=== PATIENT | female | born 1980 | race Caucasian/White ===

== ENCOUNTER 2021-06-13 23:20 | Inpatient (IN) | payer MEDICAID, OTHER ==
[~2021-06-13] VITALS: Ht 160 cm; Wt 54.0 kg
[2021-06-14 01:06] LABS: HEMATOCRIT 40.3 % (36.0-47.0); HEMOGLOBIN 13.4 g/dl (12.0-15.5); MEAN CORPUSCULAR HEMOGLOBIN 28.2 pg (27.0-33.0); MEAN CORPUSCULAR HGB CONC 33.3 g/dl (32.0-36.5); MEAN CORPUSCULAR VOLUME 84.8 fl (80.0-96.0); PLATELET COUNT, AUTOMATED 261 10^3/uL (150-450); RED BLOOD COUNT 4.75 10^6/uL (4.00-5.40); WHITE BLOOD COUNT 8.1 10^3/uL (4.0-10.0)
[2021-06-14 01:27] LABS: HCG, SERUM QUALITATIVE NEGATIVE (NEGATIVE)
[2021-06-14 01:41] LABS: ACETAMINOPHEN LEVEL < 2.0 UG/ML (10.0-30.0); ALBUMIN 4.2 GM/DL (3.2-5.2); ALT/SGPT 25 U/L (12-78); AMPHETAMINES LEVEL URINE NEGATIVE (NEGATIVE); BARBITURATES URINE NEGATIVE (NEGATIVE); BENZODIAZEPINES URINE NEGATIVE (NEGATIVE); BILIRUBIN,DIRECT 0.3 MG/DL (0.0-0.2); BILIRUBIN,TOTAL 0.8 MG/DL (0.2-1.0); BLOOD UREA NITROGEN 11 MG/DL (7-18); CALCIUM LEVEL 9.1 MG/DL (8.5-10.1); CANNABINOIDS URINE POSITIVE (NEGATIVE); CARBON DIOXIDE LEVEL 26 MEQ/L (21-32); CHLORIDE LEVEL 104 MEQ/L (98-107); COCAINE METABOLITE URINE NEGATIVE (NEGATIVE); ETHYL ALCOHOL (ETHANOL) < 0.003 % (0.000-0.010); GLOMERULAR FILTRATION RATE > 60.0 (>60); GLUCOSE, FASTING 107 MG/DL (70-100); METHADONE URINE NEGATIVE (NEGATIVE); OPIATES URINE NEGATIVE (NEGATIVE); PHENCYCLIDINE URINE NEGATIVE (NEGATIVE); POTASSIUM SERUM 3.5 MEQ/L (3.5-5.1); RSV AMPLIFICATION NEGATIVE (NEGATIVE); SALICYLATE LEVEL < 1.7 MG/DL (5.0-30.0); SODIUM LEVEL 139 MEQ/L (136-145); TOTAL PROTEIN 7.6 GM/DL (6.4-8.2)
[2021-06-14] MEDS ORDERED: MUCI600T31 PO (11:30)
[2021-06-14] MEDS ORDERED: ZINC1TAB2 PO (11:30)
[2021-06-14] MEDS ORDERED: HOME MED LIST COMPLETE! XX SCH (11:30)
[2021-06-14] MEDS ORDERED: guaiFENesin ER 600 MG TAB PO PRN (14:55)
[2021-06-14] MEDS ORDERED: traZODone 50 MG TAB PO PRN (14:55)
[2021-06-14] MEDS ORDERED: MAALOX 30 ML SUSP *UDC PO PRN (14:55)
[2021-06-14] MEDS ORDERED: ACETAMINOPHEN TAB 650MG DOSE (2X325MG) PO PRN (14:55)
[2021-06-14] MEDS ORDERED: OLANZapine ORAL DISINTEGRATING TAB 5MG PO PRN (14:55)
[2021-06-14] MEDS ORDERED: MOM 30ML SUSPENSION UDC PO PRN (14:55)
[2021-06-15 05:56] VITALS: BP 142/86
[2021-06-15 16:22] VITALS: BP 148/73
[2021-06-16 06:50] VITALS: BP 139/76
[2021-06-16 17:43] VITALS: BP 128/63
[2021-06-17 07:01] VITALS: BP 140/78
[2021-06-17] MEDS: risperiDONE 1 MG TAB PO SCH ×2 (09:00→21:41)
[2021-06-18 06:44] VITALS: BP 165/74
[2021-06-18] MEDS: risperiDONE 1 MG TAB PO SCH (09:40)
[2021-06-18] MEDS ORDERED: BENZTROPINE 1 MG TAB PO SCH (10:30)
[2021-06-18] MEDS ORDERED: BENZ-52 PO (10:35)
[2021-06-18] MEDS ORDERED: RISP-8 PO (10:35)
[2021-06-19] MEDS ORDERED: BENZ-52 PO (06:37)
[2021-06-19] MEDS ORDERED: RISP-8 PO (06:37)
[2021-06-19] MEDS ORDERED: ZINC1TAB2 PO (06:37)
== END 2021-06-18 13:30 | disposition home or self-care (01) | DRG 776 ==
LOC: M ED 23:20 → M ED INP 06-14 14:54 → M PSY 06-14 18:06
PROVIDERS: ADMIT Student in an Organized Health Care Education/Training Program; ATTEND Student in an Organized Health Care Education/Training Program
DX: F12.151 Cannabis abuse with psychotic disorder with hallucinations (principal); F31.64 Bipolar disorder, current episode mixed, severe, with psychotic features; F28 Other psychotic disorder not due to a substance or known physiological condition

== ENCOUNTER 2021-06-18 22:50 | Inpatient (IN) | payer MEDICAID, OTHER ==
[~2021-06-18 22:50] MED LIST: BENZ-52 PO; MUCI600T31 PO; RISP-8 PO; ZINC1TAB2 PO
[2021-06-19 04:14] LABS: HEMOGLOBIN 13.2 g/dl (12.0-15.5); MEAN CORPUSCULAR HGB CONC 33.8 g/dl (32.0-36.5); MEAN CORPUSCULAR VOLUME 85.7 fl (80.0-96.0); PLATELET COUNT, AUTOMATED 243 10^3/uL (150-450); RED BLOOD COUNT 4.55 10^6/uL (4.00-5.40); WHITE BLOOD COUNT 7.2 10^3/uL (4.0-10.0)
[2021-06-19 04:46] LABS: AMPHETAMINES LEVEL URINE NEGATIVE (NEGATIVE); BARBITURATES URINE NEGATIVE (NEGATIVE); BENZODIAZEPINES URINE NEGATIVE (NEGATIVE); CANNABINOIDS URINE POSITIVE (NEGATIVE); COCAINE METABOLITE URINE NEGATIVE (NEGATIVE); METHADONE URINE NEGATIVE (NEGATIVE); OPIATES URINE NEGATIVE (NEGATIVE); PHENCYCLIDINE URINE NEGATIVE (NEGATIVE)
[2021-06-19 04:56] LABS: ACETAMINOPHEN LEVEL < 2.0 UG/ML (10.0-30.0); ALBUMIN 3.9 GM/DL (3.2-5.2); ALT/SGPT 23 U/L (12-78); BILIRUBIN,DIRECT 0.1 MG/DL (0.0-0.2); BILIRUBIN,TOTAL 0.4 MG/DL (0.2-1.0); BLOOD UREA NITROGEN 12 MG/DL (7-18); CARBON DIOXIDE LEVEL 30 MEQ/L (21-32); CHLORIDE LEVEL 104 MEQ/L (98-107); CREATININE FOR GFR 0.86 MG/DL (0.55-1.30); ETHYL ALCOHOL (ETHANOL) < 0.003 % (0.000-0.010); GLOMERULAR FILTRATION RATE > 60.0 (>60); GLUCOSE, FASTING 87 MG/DL (70-100); POTASSIUM SERUM 3.5 MEQ/L (3.5-5.1); SALICYLATE LEVEL < 1.7 MG/DL (5.0-30.0); SODIUM LEVEL 139 MEQ/L (136-145); TOTAL PROTEIN 7.2 GM/DL (6.4-8.2)
[2021-06-19] MEDS ORDERED: RISP-8 PO (06:37)
[2021-06-19] MEDS ORDERED: ZINC1TAB2 PO (06:37)
[2021-06-19] MEDS ORDERED: BENZ-52 PO (06:37)
[2021-06-19] MEDS ORDERED: HOME MED LIST COMPLETE! XX SCH (06:40)
[2021-06-19] MEDS ORDERED: traZODone 50 MG TAB PO PRN (08:20)
[2021-06-19] MEDS ORDERED: MOM 30ML SUSPENSION UDC PO PRN (08:20)
[2021-06-19] MEDS ORDERED: MAALOX 30 ML SUSP *UDC PO PRN (08:20)
[2021-06-19] MEDS ORDERED: BENZTROPINE 1 MG TAB PO PRN (08:30)
[2021-06-19 08:35] LABS: HCG, SERUM QUALITATIVE NEGATIVE (NEGATIVE)
[2021-06-19] MEDS: risperiDONE 1 MG TAB PO SCH ×2 (09:00→21:44)
[2021-06-19] MEDS: ZINC SULFATE 220 MG CAP PO SCH (10:43)
[2021-06-19 16:59] VITALS: BP 125/59
[2021-06-20 06:05] VITALS: BP 169/93
[2021-06-20] MEDS ORDERED: risperiDONE 1 MG TAB PO SCH (09:00)
[2021-06-20] MEDS: ZINC SULFATE 220 MG CAP PO SCH (09:29)
[2021-06-20] MEDS ORDERED: BENZTROPINE 0.5 MG TAB PO PRN (10:00)
[2021-06-20] MEDS: risperiDONE 1 MG TAB PO SCH ×2 (10:12→20:36)
[2021-06-20] MEDS: ASPIRIN 81MG ENTERIC TABLET PO SCH (14:28)
[2021-06-20 15:21] LABS: CHOLESTEROL RISK RATIO 1.955 (<5)
[2021-06-20 16:15] VITALS: BP 133/80
[2021-06-20] MEDS: DIVALPROEX 250MG *ER* TAB PO SCH (20:36)
[2021-06-21 06:52] VITALS: BP_SYST 110; BP_SYST 135; BP_DIAS 52; BP_DIAS 78
[2021-06-21] MEDS: ASPIRIN 81MG ENTERIC TABLET PO SCH (08:18)
[2021-06-21] MEDS: risperiDONE 1 MG TAB PO SCH ×2 (08:18→21:57)
[2021-06-21] MEDS: ZINC SULFATE 220 MG CAP PO SCH (08:18)
[2021-06-21 18:57] VITALS: BP 145/66
[2021-06-21] MEDS: DIVALPROEX 250MG *ER* TAB PO SCH (21:57)
[2021-06-21] MEDS: ACETAMINOPHEN TAB 650MG DOSE (2X325MG) PO PRN (22:17)
[2021-06-22 06:32] VITALS: BP 147/87
[2021-06-22] MEDS: ZINC SULFATE 220 MG CAP PO SCH (09:00)
[2021-06-22] MEDS: risperiDONE 1 MG TAB PO SCH ×2 (09:00→21:57)
[2021-06-22 16:12] VITALS: BP 134/62
[2021-06-22] MEDS: DIVALPROEX 250MG *ER* TAB PO SCH (21:57)
[2021-06-23] MEDS: IBUPROFEN 400MG TAB PO PRN (06:08)
[2021-06-23 06:54] VITALS: BP 140/66
[2021-06-23] MEDS: risperiDONE 1 MG TAB PO SCH ×2 (08:42→21:00)
[2021-06-23] MEDS: ZINC SULFATE 220 MG CAP PO SCH (08:43)
[2021-06-23 16:23] VITALS: BP 123/58
[2021-06-23] MEDS: ACETAMINOPHEN TAB 650MG DOSE (2X325MG) PO PRN ×2 (16:30→22:55)
[2021-06-23] MEDS: DIVALPROEX 250MG *ER* TAB PO SCH (21:00)
[2021-06-24 06:30] VITALS: BP 144/82
[2021-06-24] MEDS: ZINC SULFATE 220 MG CAP PO SCH (10:59)
[2021-06-24] MEDS: risperiDONE 1 MG TAB PO SCH ×2 (10:59→20:38)
[2021-06-24 16:22] VITALS: BP 130/87
[2021-06-24] MEDS: DIVALPROEX 250MG *ER* TAB PO SCH (20:38)
[2021-06-24] MEDS: ACETAMINOPHEN TAB 650MG DOSE (2X325MG) PO PRN (20:38)
[2021-06-25 06:42] VITALS: BP 129/84
[2021-06-25] MEDS: risperiDONE 1 MG TAB PO SCH (09:00)
[2021-06-25] MEDS: ZINC SULFATE 220 MG CAP PO SCH (09:46)
[2021-06-25] MEDS: risperiDONE 2 MG TAB PO SCH (21:07)
[2021-06-25] MEDS: DIVALPROEX 250MG *ER* TAB PO SCH (21:08)
[2021-06-25 21:51] VITALS: BP 147/90
[2021-06-26 06:30] VITALS: BP 130/81
[2021-06-26] MEDS: ZINC SULFATE 220 MG CAP PO SCH (09:52)
[2021-06-26 19:05] VITALS: BP 130/60
[2021-06-26] MEDS: risperiDONE 2 MG TAB PO SCH (22:02)
[2021-06-26] MEDS: DIVALPROEX 250MG *ER* TAB PO SCH (22:03)
[2021-06-26] MEDS: ACETAMINOPHEN TAB 650MG DOSE (2X325MG) PO PRN (22:05)
[2021-06-27 06:25] VITALS: BP 138/67
[2021-06-27] MEDS: ZINC SULFATE 220 MG CAP PO SCH (09:54)
[2021-06-27 17:37] VITALS: BP 136/61
[2021-06-27] MEDS: DIVALPROEX 250MG *ER* TAB PO SCH (21:25)
[2021-06-27] MEDS: IBUPROFEN 400MG TAB PO PRN (21:25)
[2021-06-27] MEDS: risperiDONE 2 MG TAB PO SCH (21:25)
[2021-06-28] MEDS ORDERED: risperiDONE LONG-ACTING 37.5 MG/2 ML INJ (J2794 PER 0.5MG) IM SCH (06:00)
[2021-06-28 06:38] VITALS: BP 124/57
[2021-06-28] MEDS: ZINC SULFATE 220 MG CAP PO SCH (09:14)
[2021-06-28 18:28] VITALS: BP 130/55
[2021-06-28] MEDS: risperiDONE 2 MG TAB PO SCH (21:37)
[2021-06-28] MEDS: DIVALPROEX 250MG *ER* TAB PO SCH (21:37)
[2021-06-28] MEDS: IBUPROFEN 400MG TAB PO PRN (21:38)
[2021-06-29 06:24] VITALS: BP 126/56
[2021-06-29] MEDS: ZINC SULFATE 220 MG CAP PO SCH (08:14)
[2021-06-29 18:00] VITALS: BP 131/60
[2021-06-29] MEDS: risperiDONE 2 MG TAB PO SCH (20:52)
[2021-06-29] MEDS: DIVALPROEX 250MG *ER* TAB PO SCH (20:53)
[2021-06-29] MEDS: IBUPROFEN 400MG TAB PO PRN (20:55)
[2021-06-30 06:53] VITALS: BP 117/60
[2021-06-30] MEDS: ZINC SULFATE 220 MG CAP PO SCH (08:09)
[2021-06-30] MEDS: ACETAMINOPHEN TAB 650MG DOSE (2X325MG) PO PRN (13:42)
[2021-06-30] MEDS: risperiDONE 2 MG TAB PO SCH (20:55)
[2021-06-30] MEDS: DIVALPROEX 250MG *ER* TAB PO SCH (20:55)
[2021-07-01 06:20] VITALS: BP 118/58
[2021-07-01] MEDS: guaiFENesin ER 600 MG TAB PO PRN (10:02)
[2021-07-01] MEDS: ZINC SULFATE 220 MG CAP PO SCH (10:02)
[2021-07-01 18:06] VITALS: BP 119/54
[2021-07-01] MEDS: DIVALPROEX 250MG *ER* TAB PO SCH (21:14)
[2021-07-01] MEDS: risperiDONE 2 MG TAB PO SCH (21:14)
[2021-07-02 06:12] VITALS: BP 134/70
[2021-07-02] MEDS: ZINC SULFATE 220 MG CAP PO SCH (09:28)
[2021-07-02] MEDS: guaiFENesin ER 600 MG TAB PO PRN (09:28)
[2021-07-02 16:07] VITALS: BP 125/61
[2021-07-02] MEDS: risperiDONE 2 MG TAB PO SCH ×2 (21:45→22:34)
[2021-07-02] MEDS: DIVALPROEX 250MG *ER* TAB PO SCH ×2 (21:45→22:34)
[2021-07-03 06:20] VITALS: BP 124/78
[2021-07-03] MEDS: ZINC SULFATE 220 MG CAP PO SCH (08:51)
[2021-07-03] MEDS: DOCUSATE SODIUM 100MG CAPSULE PO PRN ×2 (08:51→23:02)
[2021-07-03] MEDS: guaiFENesin ER 600 MG TAB PO PRN (08:51)
[2021-07-03 16:06] VITALS: BP 129/59
[2021-07-03] MEDS: IBUPROFEN 400MG TAB PO PRN (19:30)
[2021-07-03] MEDS: DIVALPROEX 250MG *ER* TAB PO SCH (23:03)
[2021-07-03] MEDS: risperiDONE 1 MG TAB PO SCH (23:03)
[2021-07-04 06:38] VITALS: BP 120/56
[2021-07-04] MEDS: DOCUSATE SODIUM 100MG CAPSULE PO PRN (08:59)
[2021-07-04] MEDS: ZINC SULFATE 220 MG CAP PO SCH (08:59)
[2021-07-04] MEDS: guaiFENesin ER 600 MG TAB PO PRN ×2 (09:00→21:20)
[2021-07-04 16:17] VITALS: BP 124/54
[2021-07-04] MEDS: DIVALPROEX 250MG *ER* TAB PO SCH (21:20)
[2021-07-04] MEDS: SODIUM CHLORIDE NASAL 0.65% SPRAY BTL (OCEAN) PRN (21:20)
[2021-07-04] MEDS: risperiDONE 1 MG TAB PO SCH (21:21)
[2021-07-05 06:55] VITALS: BP 129/63
[2021-07-05] MEDS ORDERED: BENZ0.5T23 PO (08:31)
[2021-07-05] MEDS ORDERED: DEPA250T2 PO (08:31)
[2021-07-05] MEDS ORDERED: DEPA500T2 PO (08:31)
[2021-07-05] MEDS ORDERED: COLA100C5 PO (08:33)
[2021-07-05] MEDS ORDERED: RISP3TAB20 PO (08:33)
[2021-07-05] MEDS ORDERED: ZINC220CA PO (08:35)
[2021-07-05] MEDS ORDERED: Sodium Chloride Nasal Spray (08:35)
[2021-07-05] MEDS ORDERED: RISP37INJ IM (08:35)
[2021-07-05] MEDS: ZINC SULFATE 220 MG CAP PO SCH (08:50)
[2021-07-05] MEDS: DOCUSATE SODIUM 100MG CAPSULE PO PRN (08:51)
[2021-07-05] MEDS: guaiFENesin ER 600 MG TAB PO PRN (08:51)
[2021-07-05] MEDS: SODIUM CHLORIDE NASAL 0.65% SPRAY BTL (OCEAN) PRN (08:52)
== END 2021-07-05 10:12 | disposition home or self-care (01) | DRG 753 ==
LOC: M ED 22:50 → M ED INP 06-19 08:20 → M PSY 06-19 11:20
PROVIDERS: ADMIT Student in an Organized Health Care Education/Training Program; ATTEND Student in an Organized Health Care Education/Training Program
DX: F31.2 Bipolar disorder, current episode manic severe with psychotic features (principal); F12.10 Cannabis abuse, uncomplicated; R00.0 Tachycardia, unspecified; Z81.8 Family history of other mental and behavioral disorders; Z81.4 Family history of other substance abuse and dependence; Z87.891 Personal history of nicotine dependence; Z79.899 Other long term (current) drug therapy; Z91.411 Personal history of adult psychological abuse; F10.10 Alcohol abuse, uncomplicated; H92.02 Otalgia, left ear

== ENCOUNTER 2021-07-12 13:39 | Emergency (ER) | payer MEDICAID, OTHER ==
[~2021-07-12] VITALS: Ht 157.5 cm; Wt 55.9 kg
[~2021-07-12 13:39] MED LIST changes: +BENZ0.5T23 PO; +COLA100C5 PO; +DEPA250T2 PO; +DEPA500T2 PO; +RISP37INJ IM; +RISP3TAB20 PO; +Sodium Chloride Nasal Spray; +ZINC220CA PO
[2021-07-12 19:03] VITALS: BP 130/64
== END 2021-07-12 19:05 | disposition home or self-care (01) ==
LOC: M ED 13:39
DX: F31.9 Bipolar disorder, unspecified (principal); Z51.81 Encounter for therapeutic drug level monitoring; Z79.899 Other long term (current) drug therapy

== ENCOUNTER → 2023-06-12 | Outpatient (CLI) | payer OTHER ==
[~2023-06-12] MED LIST changes: -BENZ-52 PO; +BENZ0.5T2 PO; -BENZ0.5T23 PO; +BENZ1TAB5 PO
[2023-06-12 07:50] VITALS: TEMP 98.6
[2023-06-12 10:40] VITALS: BP 118/78; O2SAT 100
== END ==
LOC: M WHCPRO 07:40
PROVIDERS: ATTEND Physician Assistant Medical
DX: D24.1 Benign neoplasm of right breast (principal); D24.2 Benign neoplasm of left breast; N63.23 Unspecified lump in the left breast, lower outer quadrant; N63.11 Unspecified lump in the right breast, upper outer quadrant; N63.12 Unspecified lump in the right breast, upper inner quadrant